=== PATIENT | male | born 1950 | race Caucasian/White ===

== ENCOUNTER → 2017-09-13 14:29 | Outpatient (CLI) | payer MEDICARE, SELFPAY ==
--- NOTE | 2017-09-13 | DI.US.S_ITS ---
PROCEDURE: US ARTERIAL DUPLEX LE BI INDICATIONS: bilateral lower extremity pain TECHNIQUE: Color and pulse Doppler interrogation was performed of both lower extremity arterial systems, with image documentation. COMPARISON: None. FINDINGS: Right lower extremity: Common femoral artery: 68 cm/sec, with biphasic flow. Deep femoral artery: 42 cm/sec, with biphasic flow. Proximal superficial femoral artery: 53 cm/sec, with triphasic flow. Mid superficial femoral artery: 67 cm/sec, with triphasic flow. Distal superficial femoral artery: 72 cm/sec, with triphasic flow. Popliteal artery: 36 cm/sec, with triphasic flow. Posterior tibial artery: 43 cm/sec, with monophasic flow. Anterior tibial artery/dorsalis pedis: 87 cm/sec, with biphasic flow. Fernández-scale imaging description: Scattered calcific and soft plaque Left lower extremity: Common femoral artery: 80 cm/sec, with triphasic flow. Deep femoral artery: 38 cm/sec, with biphasic flow. Proximal superficial femoral artery: 65 cm/sec, with triphasic flow. Mid superficial femoral artery: 62 cm/sec, with triphasic flow. Distal superficial femoral artery: 62 cm/sec, with triphasic flow. Popliteal artery: 52 cm/sec, with triphasic flow. Posterior tibial artery: 61 cm/sec, with triphasic flow. Anterior tibial artery/dorsalis pedis: 61 cm/sec, with triphasic flow. Fernández-scale imaging description: Scattered calcific and soft plaque . IMPRESSION: Scattered calcific and soft plaque, monophasic flow in the distal right posterior tibial artery indicates significant stenosis through that area, but elsewhere the flow to the bilateral lower extremity arterial vasculature is normal for age. Dictated by: Amrik Gill M.D. on 09/13/2017 at 16:28 Approved by: Amrik Gill M.D. on 09/13/2017 at 16:52
== END ==
PROVIDERS: Family Provider Internal Medicine; PCP Internal Medicine; Visit Provider Student in an Organized Health Care Education/Training Program
DX: I70.201 Unspecified atherosclerosis of native arteries of extremities, right leg (principal); M79.605 Pain in left leg; M79.604 Pain in right leg
CPT/HCPCS: 93925